=== PATIENT | female | born 1990 | race Caucasian/White ===

== ENCOUNTER 2016-12-13 09:24 | Emergency (ER) | payer OTHER ==
[2016-12-13] MEDS ORDERED: DEXAMETHASONE 10 MG/ML VIAL PO STA (11:12)
[2016-12-13] MEDS ORDERED: IPRATROPIUM/ALBUTEROL 3 ML NEB INH STA (11:12)
--- NOTE | 2016-12-13 11:15 | ED Physician Documentation ---
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 She felt that this improved and was almost gone in the middle of last week then it returned worse with fever and sore throat and with wheezing. She has never used an inhaler .She works in a daycare. Review of Systems Constitutional: reports: Fever Eyes: denies: Decreased vision Ears: denies: Ear pain Nose: reports: Rhinorrhea / runny nose, Congestion Throat: reports: Sore throat Cardiac: denies: Chest pain / pressure, Palpitations Respiratory: reports: Dyspnea, Cough, Wheezing GI: denies: Abdominal Pain, Nausea, Vomiting : denies: Dysuria PD PAST MEDICAL HISTORY - Past Surgical History Past Surgical History: No - Present Medications Home Medications: Ambulatory Orders Medication Instructions Recorded Confirmed Albuterol Sulf [Ventolin Hfa 1 - 2 puffs INH Q4HR PRN #1 inhaler 12/13/16 Inhaler] Azithromycin [Zithromax] 250 mg PO DAILY #6 tablet 12/13/16 - Allergies Allergies/Adverse Reactions: Allergies Allergy/AdvReac Type Severity Reaction Status Date / Time ceftriaxone sodium * Allergy Intermediate Itching Verified 02/19/16 02:34 [From Rocephin] - Social History Does the pt smoke?: No Smoking Status: Never smoker Does the pt drink ETOH?: No Does the pt have substance abuse?: No - Immunizations Immunizations are current?: Yes - POLST Patient has POLST: No PD ED PE NORMAL - Vitals Vital signs reviewed: Yes (normal ) - General General: Alert and oriented X 3, No acute distress, Well developed/nourished - HEENT HEENT: Atraumatic, PERRL, EOMI, Other (The left TM is inflamed the right is clear. There is thick phlem draining from above in the pharynx and the tonsils are 2+ with exudate worse on the left. ) - Neck Neck: Supple, no meningeal sign, No bony TTP - Cardiac Cardiac: RRR, No murmur - Respiratory Respiratory: No respiratory distress, Other (diminished breath sound.s ) - Abdomen Abdomen: Soft, Non tender - Back Back: No CVA TTP, No spinal TTP - Derm Derm: Normal color, Warm and dry, No rash - Extremities Extremities: No deformity, No edema - Neuro Neuro: No motor deficit, No sensory deficit - Psych Psych: Normal mood, Normal affect Results - Vitals Vitals: Vital Signs - 24 hr 12/13/16 12/13/16 12/13/16 09:27 11:27 11:30 Temperature 36.5 C 36.8 C Heart Rate 70 68 60 Respiratory 18 17 16 Rate Blood Pressure 128/58 L 111/52 L O2 Saturation 100 100 12/13/16 11:59 Temperature Heart Rate 67 Respiratory 16 Rate Blood Pressure 109/56 L O2 Saturation 100 Oxygen O2 Source Room air PD MEDICAL DECISION MAKING - ED course Complexity details: considered differential, d/w patient, d/w family ED course: 26 y/o female with a cough and shortness of breath has OM on exam and has some improvement subjectively with a duoneb treatment and she is taught inhaler use with a spacer. She is given decadron in the ED. Departure - Departure Disposition: 01 Home, Self Care Clinical Impression: Otitis media Qualifiers: Otitis media type: suppurative Laterality: left Chronicity: acute Recurrence: not specified as recurrent Spontaneous tympanic membrane rupture: without spontaneous rupture Qualified Code(s): H66.002 - Acute suppurative otitis media without spontaneous rupture of ear drum, left ear Condition: Stable Instructions: ED Otitis Media Acute Adult, ED Bronchitis Asthmatic Follow-Up: [facility] [Provider Group] Prescriptions: Albuterol Sulf [Ventolin Hfa Inhaler] 1 - 2 puffs INH Q4HR PRN #1 inhaler PRN Reason: Shortness Of Air/Wheezing Azithromycin [Zithromax] 250 mg PO DAILY #6 tablet Forms: Activity restrictions Discharge Date/Time: 12/13/16 12:24
[2016-12-13] MEDS ORDERED: DEXAMETHASONE 10 MG/ML VIAL ONE (11:16)
[2016-12-13] MEDS ORDERED: CHERRY SYRUP 10 ML UDC PO ONE (11:16)
[2016-12-13] MEDS ORDERED: IPRATROPIUM/ALBUTEROL 3 ML NEB INH ONE (11:25)
[2016-12-13 12:01] VITALS: BP 109/56
== END 2016-12-13 12:24 | disposition home or self-care (01) ==
LOC: ED 09:24
DX: H66.002 Acute suppurative otitis media without spontaneous rupture of ear drum, left ear (principal)
CPT/HCPCS: 94640; 94664; 99283; A9270; J7620

== ENCOUNTER 2017-08-17 19:43 | Outpatient (CLI) | payer OTHER ==
[2017-08-17 20:07] VITALS: BP 103/59
== END 2017-08-17 22:07 | disposition home or self-care (01) ==
LOC: WFO 19:43 → FBP 19:46 → WFO 22:07
PROVIDERS: ATTEND Obstetrics & Gynecology
DX: Z34.03 Encounter for supervision of normal first pregnancy, third trimester (principal)
CPT/HCPCS: 99213

== ENCOUNTER 2017-08-18 04:25 | Outpatient (CLI) | payer OTHER ==
[2017-08-18] MEDS ORDERED: MORPHINE 10 MG/ML VIAL IM SCH (05:33)
[2017-08-18] MEDS ORDERED: PROMETHAZINE 25 MG/1 ML VIAL IM SCH (05:34)
[2017-08-18] MEDS ORDERED: MORPHINE 10 MG/ML VIAL ONE (05:54)
[2017-08-18 09:41] VITALS: BP 122/73
== END 2017-08-18 10:10 | disposition home or self-care (01) ==
LOC: WFO 04:25 → FBP 04:26 → WFO 10:10
PROVIDERS: ATTEND Obstetrics & Gynecology
DX: Z34.03 Encounter for supervision of normal first pregnancy, third trimester (principal)
CPT/HCPCS: 96372; 99213